=== PATIENT | male | born 1975 | race African-American/Black ===

== ENCOUNTER 2019-06-11 17:04 | Emergency (ER) | payer OTHER ==
[~2019-06-11] VITALS: Ht 180.3 cm; Wt 115.2 kg
[~2019-06-11 17:04] MED LIST: HYDROCHLOROTHIA25 MG PO; LISINOPRIL10 MG PO
--- OUTSIDE RECORDS SUMMARY | 2019-06-11 17:06 | XMS REPORT ---
Author Author [facility] Address Unknown Phone Unavailable Care Team Providers Care Feedmobile Driver Name Role Phone Unavailable Unavailable Payers Payer Name Policy Type Policy Number Effective Date Expiration Date Problems This patient has no known problems. Allergies, Adverse Reactions, Alerts Allergy Name Allergy Type Status Severity Reaction(s) Onset Date Inactive Date Treating Clinician Comments No Known Allergies DA Active U 2019-01-18 00:00:00 No Known Allergies DA Active U 2015-11-16 00:00:00 Medications This patient has no known medications. Results Test Description Test Time Test Comments Text Results Atomic Results Result Comments TROPONIN-I 2019-01-18 12:09:00 TROPONIN-I (test code=TROPI) <0.015 ng/mL 0-0.045 BASIC METABOLIC [id number] 08:51:00* Test Item Value Reference Range Comments SODIUM (test code=NA) 140 mmol/L 136-145 POTASSIUM (test code=K) 3.8 mmol/L 3.5-5.1 CHLORIDE (test code=CL) 109.0 mmol/L 98-107 CARBON DIOXIDE (test code=CO2) 27.0 mmol/L 21-32 ANION GAP (test code=GAP) 7.8 10-20 GLUCOSE (test code=GLU) 101 mg/dL 74-106 BLOOD UREA NITROGEN (test code=BUN) 10 mg/dL 7-18 GLOMERULAR FILTRATION RATE (test code=GFR) > 60 mL/min >=60 Estimated GFR by using Modified MDRD formula.Chronic kidney disease is defined as either kidney damageor GFR <60 mL/min/1.73 m2 for >3 months. CREATININE (test code=CREAT) 1.00 mg/dL 0.7-1.3 BUN/CREATININE RATIO (test code=BUN/CREA) 10.0 10-20 CALCIUM (test code=CA) 9.0 mg/dL 8.5-10.1 [id number] 08:51:00* Test Item Value Reference Range Comments TROPONIN-I (test code=TROPI) <0.015 ng/mL 0-0.045 BASIC METABOLIC [id number] 08:45:00* Test Item Value Reference Range Comments SODIUM (test code=NA) 140 mmol/L 136-145 POTASSIUM (test code=K) 3.8 mmol/L 3.5-5.1 CHLORIDE (test code=CL) 109.0 mmol/L 98-107 CARBON DIOXIDE (test code=CO2) mmol/L 21-32 ANION GAP (test code=GAP) 10-20 GLUCOSE (test code=GLU) mg/dL 74-106 BLOOD UREA NITROGEN (test code=BUN) mg/dL 7-18 GLOMERULAR FILTRATION RATE (test code=GFR) mL/min >=60 CREATININE (test code=CREAT) mg/dL 0.7-1.3 BUN/CREATININE RATIO (test code=BUN/CREA) 10-20 CALCIUM (test code=CA) mg/dL 8.5-10.1 [id number] 08:45:00* Test Item Value Reference Range Comments TROPONIN-I (test code=TROPI) ng/mL 0-0.045 CBC W/O [id number] 08:39:00* Test Item Value Reference Range Comments WHITE BLOOD CELL (test code=WBC) 6.2 K/mm3 4.5-12.5 RED BLOOD CELL (test code=RBC) 5.08 mill/mm3 4.0-5.8 HEMOGLOBIN (test code=HGB) 14.8 gram/dL 13.0-17.5 HEMATOCRIT (test code=HCT) 45.9 % 42.0-52.0 MEAN CELL VOLUME (test code=MCV) 90.4 fL 80-98 MEAN CELL HGB (test code=MCH) 29.1 picogram 27.0-33.0 MEAN CELL HGB CONCETRATION (test code=MCHC) 32.2 gram/dL 33.0-36.0 RED CELL DISTRIBUTION WIDTH (test code=RDW) 13.7 % 11.6-16.2 PLATELET COUNT (test code=PLT) 243 K/mm3 150-450 MEAN PLATELET VOLUME (test code=MPV) 8.6 fL 6.7-11.0 - XR CHEST 1 [id number] 08:05:00 FAX: Ivan Estes [phone] [place]: St: REG Name: VEENA LUNA [facility] : [birth year] Age/S: 43/M [address] [facility] Unit #: [id number] Loc: [place] [address] Phys: Ivan Valerio MD Acct: [id number] Dis Date: Status: REG ER PHONE #: [phone] Exam Date: 01/18/2019 0800 FAX #: [phone] Reason: CHEST PAIN EXAMS: CPT CODE: [id number] XR CHEST 1 V 87813 HISTORY: Chest pain. COMPARISON: None available. No acute infiltrates, effusion or con gestion is noted. The cardiac and mediastinal silhouette are withi n normal limits. IMPRESSION: No acute infilt rates, effusion or congestion. at 0805 Reported and signed by: Jaylene Moreno M.D. CC: Ivan Valerio MD Technologist: Jimmy CAMPOS(R) Trnscrd Date/Time/By: 01/18/2019 (804) : By: [email or web address] Orig Print D/T: S: 01/18/2019 (0808) PAGE 1 Signed Report [id number] 08:45:00* Test Item Value Reference Range Comments GLUCOSE (test code=URGLU) NEGATIVE MG/DL NEG-100 BILIRUBN (test code=URBILI) NEGATIVE NEGATIVE KETONE (test code=URKET) NEGATIVE MG/DL NEGATIVE BLOOD (test code=URBLD) NEGATIVE UR PH (test code=URPH) 5.0 5.0-7.5 PROTEIN (test code=URPRO) NEGATIVE MG/DL NEGATIVE NITRITES (test code=URNIT) NEGATIVE NEGATIVE UROBILINGEN (test code=URURO) 0.2 EU/DL 0.2-1.0 LEUKOCYT (test code=URLEU) NEGATIVE NEGATIVE UA COLOR (test code=UA COLOR) YELLOW YELLOW CLARITY (test code=CLARITY) CLEAR CLEAR SP GRAV (test code=URSPGRAV) 1.022 1.000-1.025 UAMICRO (test code=UAMICRO) NO BMP, BASIC METABOLIC [id number] 08:06:00* Test Item Value Reference Range Comments SODIUM (test code=NA) 138 MMOL/L 137-145 K+ (test code=KSERUM) 4.3 MMOL/L 3.5-5.1 PLEASE NOTE NEW REFERENCE RANGE(S) IN EFFECT EFFECTIVE 04/15/2010 - NEW ANALYZER (HyprKeyS 5600) CHLORIDE (test code=CL) 108 MMOL/L 98-107 CO2 (test code=CO2) 25 MMOL/L 22-30 BUN (test code=BUN) 16 MG/DL 9-20 CREA (test code=CREA) 1.0 MG/DL 0.8-1.5 GLUCOSE (test code=GLUCOSE) 99 MG/DL 70-99 Fasting glucose normal <100 MG/DL- [employer] recommendation CALCIUM (test code=CABLOOD) 9.4 MG/DL 8.4-10.2 GFR (test code=GFR) 104 mL/min/1.73m2 A GFR of >90 mL/min/1.73m2 is considered normal. CT HEAD W/O [id number] 08:03:[address] [id number] IMAGING REPORTPatient Name: Deborah LLOYDte of Service: [id number]: 43 Sex: M Order #: [id number] [facility] 1975 X[facility]Ray Number: [id number] Record Number: [id number] Hospital Number: [id number] Physician: ROMULO CRUZOrdering Physician: MARU ORELLANA CT brain without contrast 09/24/2018History: Headache x5 days, hypertensionComparison: NoneThis CT exam was performed using one or more of the following dosereduction techniques: Automated exposure control, adjustment of the mAand/or kV according to patient size, or use of iterative reconstructiontechnique.Axial images were obtained through the brain without contrast.Visualized portions of the orbits, sinuses, mastoids, scalp, and skull arewithin normal limits.There is no acute intracranial hemorrhage, infarct, mass, shift, edema, orhydrocephalus.Impression:No acute process. Within normal limits.Electronically Signed By: Leo Castillo M.D., 09/24/2018 8:01 AMLegally authenticated by ANGELA CASTELLANOS 2018-09-24 08:01:[id number] 07:57:00* Test Item Value Reference Range Comments WBC (test code=WBC) 5.2 K/UL 3.5-10.9 RBC (test code=RBC) 4.77 M/UL 4.3-5.7 HGB (test code=HGB) 14.1 G/DL 13.0-17.9 HCT (test code=HCT) 42.7 % 38-52 MCV (test code=MCV) 89.5 FL 80-98 MCH (test code=MCH) 29.6 PG 28-32 MCHC (test code=MCHC) 33.0 G/DL 32.5-36.5 RDW (test code=RDW) 13.4 % 11.5-14.5 PLT (test code=PLT) 234 K/UL 150-450 MPV (test code=MPV) 8.8 FL 7.4-10.4 MANDIFF (test code=MANDIFF) NO SCAN (test code=SCAN) NO NEUT% (test code=NEUT%) 52.9 % 40-75 LYMPH% (test code=LYMPH%) 34.7 % 24-44 MONO% (test code=MONO%) 8.8 % 0-13 EOS% (test code=EOS%) 2.1 % 0-4 BASO % (test code=BASO%) 1.3 % 0-2 IG (test code=IG) 0 % 0-1 IG% (test code=IG%) 0.2 % 0-1 IG%=Metamyelocytes, Myelocytes, and Promyelocytes. (Immature neutrophils not including "bands".) > 3% IG indicates risk of sepsis NRBC% (test code=NRBC%) 0 /100 WBC ABS NEUT (test code=NEUT) 2.8 K/UL 1.2-7.2
[2019-06-11] MEDS ORDERED: ASPIRIN 81 MG CHEW TAB PO ONE (17:15)
[2019-06-11] MEDS ORDERED: HYDRALAZINE HCL 20 MG/ML VIAL IV ONE (17:15)
--- NOTE | 2019-06-11 17:57 | Diagnostic Imaging Report ---
EXAMINATION: CHEST SINGLE (NOT PORTABLE) INDICATION: ^CHEST PAIN ^[id number] ^1740 ^Y COMPARISON: None FINDINGS: TUBES and LINES: None. LUNGS: Lungs are well inflated. Lungs are clear. There is no evidence of pneumonia or pulmonary edema. PLEURA: No pleural effusion or pneumothorax. HEART AND MEDIASTINUM: Cardiac size is mildly enlarged. BONES AND SOFT TISSUES: No acute osseous lesion. Soft tissues are unremarkable. UPPER ABDOMEN: No free air under the diaphragm. IMPRESSION: No acute thoracic abnormality. Signed by: Dr. Deonna Vasquez M.D. on 06/11/2019 5:53 PM
--- NOTE | 2019-06-11 18:01 | Diagnostic Imaging Report ---
History: Headache Comparison studies: None Technique: Axial images were obtained from the skull base to the vertex. Coronal and sagittal reconstructions obtained from the axial data. Dose modulation, iterative reconstruction, and/or weight based adjustment of the mA/kV was utilized to reduce the radiation dose to as low as reasonably achievable. Intravenous contrast: None Findings: Scalp/skull: No abnormalities. No fractures, blastic or lytic lesions. Extra-axial spaces: No masses. No fluid collections. Brain sulci: Appropriate for age. Ventricles: Normal in size and configuration. No hydrocephalus. Parenchyma: No abnormal densities. No masses, hemorrhage, acute or chronic cortical vascular insults. Sellar/suprasellar region: No abnormalities Craniocervical junction: No Chiari one malformation. Mild stenosis of the foramen magnum is probably related to 5 mm widening of the partially visualized atlantooccipital articulation and subtle posterior displacement of the partially visualized dense. IMPRESSION: 1. No intracranial abnormalities. 2. Focal widening (5 mm) of the partially visualized atlantoaxial articulation is associated with mild posterior displacement of the odontoid and mild stenosis of the foramen magnum (series 400, image 32). Cannot further evaluate. Recommend a cervical spine CT without contrast or cervical spine for further evaluation Signed by: Dr. Nuno Jackson M.D. on 06/11/2019 5:58 PM
[2019-06-11 18:29] LABS: BASOPHILS # (AUTO) 0.1 (0.0-0.1); BASOPHILS % 0.8 % (0.0-1.0); EOSINOPHILS # (AUTO) 0.1 (0.0-0.4); EOSINOPHILS % 1.7 % (0.0-6.0); HEMATOCRIT 43.6 % (38.2-49.6); HEMOGLOBIN 14.5 g/dL (14.0-18.0); LYMPHOCYTES % 26.9 % (18.0-39.1); MEAN CORPUSCULAR HEMOGLOBIN 29.8 pg (28-32); MEAN CORPUSCULAR HGB CONC 33.3 g/dL (31-35); MEAN CORPUSCULAR VOLUME 89.7 fL (81-99); MONOCYTES # (AUTO) 0.6 (0.2-0.8); MONOCYTES % 7.6 % (4.4-11.3); NEUTROPHILS # (AUTO) 4.7 (2.1-6.9); NEUTROPHILS % 62.6 % (38.7-80.0); PLATELET COUNT 251 x10e3/uL (140-360); RED BLOOD COUNT 4.86 x10e6/uL (4.3-5.7); RED CELL DISTRIBUTION WIDTH 13.8 % (11.7-14.4)
[2019-06-11 18:33] LABS: INR 0.85; PROTHROMBIN TIME 12.1 seconds (11.9-14.5)
--- NOTE | 2019-06-11 18:44 | Diagnostic Imaging Report ---
History: Trauma Comparison studies: None Technique: Axial images were obtained through the cervical region.. Coronal and sagittal images reconstructed from the axial data. Dose modulation, iterative reconstruction, and/or weight based adjustment of the mA/kV was utilized to reduce the radiation dose to as low as reasonably achievable. Intravenous contrast: None Findings: Fractures: None. Soft tissues: No gross abnormalities. Atlantoaxial articulation: Intact. Alignment: Normal lordosis. No scoliosis. Cervicomedullary junction: No abnormalities. The foramen magnum is patent. Vertebrae: No infection or neoplasm. Degenerative changes: None. IMPRESSION: 1. No abnormalities. 2. Partially visualized at the foramen magnum, described on the CT, where related to patient's positioning (i.e head flexion). Signed by: Dr. Nuno Jackson M.D. on 06/11/2019 6:41 PM
[2019-06-11 18:45] LABS: ALANINE AMINOTRANSFERASE 23 IU/L (0-55); ALBUMIN 3.5 g/dL (3.5-5.0); ALBUMIN/GLOBULIN RATIO 1.1 (0.8-2.0); ALKALINE PHOSPHATASE 79 IU/L (40-150); ANION GAP 12.9 mmol/L (8-16); BLOOD UREA NITROGEN 14 mg/dL (7-26); BUN/CREATININE RATIO 14 (6-25); CALCIUM 9.1 mg/dL (8.4-10.2); CARBON DIOXIDE 25 mmol/L (22-29); CHLORIDE 107 mmol/L (98-107); CREATINE KINASE 218 IU/L (30-200); CREATININE, SERUM 1.01 mg/dL (0.72-1.25); EST GLOMERULAR FILTRATION RATE > 60 ML/MIN (60-); GLUCOSE 107 mg/dL (74-118); POTASSIUM 3.9 mmol/L (3.5-5.1); SODIUM 141 mmol/L (136-145)
== END 2019-06-11 19:23 | disposition home or self-care (01) ==
LOC: ER 17:04
DX: R07.89 Other chest pain (principal); I10 Essential (primary) hypertension; G44.1 Vascular headache, not elsewhere classified; F17.200 Nicotine dependence, unspecified, uncomplicated
CPT/HCPCS: 36415; 70450; 71045; 72125; 80053; 82550; 82553; 83880; 84484; 85025; 85610; 93005; 99284; J0360

== ENCOUNTER 2019-10-21 14:13 | Emergency (ER) | payer SELFPAY ==
[~2019-10-21] VITALS: Ht 180.3 cm; Wt 115.2 kg
== END 2019-10-21 14:26 | disposition left against medical advice (07) ==
LOC: ER 14:13
DX: M25.562 Pain in left knee (principal)